=== PATIENT | female | born 1995 ===

== ENCOUNTER → 2020-08-06 13:14 | Outpatient (BNVA) | payer OTHER, SELFPAY | PROVIDERS: Visit Provider Advanced Practice Midwife | DX: Z32.00 Encounter for pregnancy test, result unknown (principal) | CPT/HCPCS: 81025; 99211 ==

== ENCOUNTER → 2020-09-03 14:11 | Outpatient (BNVA) | payer OTHER, SELFPAY | PROVIDERS: Visit Provider Advanced Practice Midwife | DX: Z76.89 Persons encountering health services in other specified circumstances (principal) ==

== ENCOUNTER 2020-09-14 11:33 | Outpatient (REF) | payer OTHER, SELFPAY ==
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
[2020-09-14 13:23] LABS: MANUAL DIFF FLAG NO
[2020-09-14 13:35] LABS: Basophils Absolute Auto 0.1 X10*3/uL (0.0-0.2); Basophils Percent Auto 0.3 % (0-2); Eosinophils Absolute Auto 0.1 X10*3/uL (0.0-0.4); Eosinophils Percent Auto 0.9 % (0-4); Hematocrit 38.3 % (37-47); Hemoglobin 12.6 g/dl (12.0-16.0); Imm Gran Abs Auto 0.15 X10*3/uL (0.00-0.03); Lymphocytes Absolute Auto 2.7 X10*3/uL (1.2-4.9); Lymphocytes Percent Auto 18.3 % (20-40); Mean Corpuscular HGB Conc 32.9 g/dl (31.0-35.0); Mean Corpuscular Hemoglobin 29.9 pg (27.0-33.0); Mean Platelet Volume 9.2 fL (9.4-12.3); Monocytes Absolute Auto 0.8 X10*3/uL (0.1-1.2); Monocytes Percent Auto 5.2 % (2-11); Neutrophils Percent Auto 74.3 % (45-73); Platelet Count 472 X10*3/uL (160-400); Red Blood Count 4.21 X10*6/uL (4.20-5.50); Red Cell Distribution Width 12.1 % (11.0-16.0); White Blood Count 14.9 X10*3/uL (4.8-10.8)
[2020-09-14 14:06] LABS: Amphetamine Screen Urine Not Detected (Not Detect); Barbiturates, Urine Not Detected (Not Detect); Benzodiazepines Screen Urine Not Detected (Not Detect); Cannabinoid Screen Urine POSITIVE (Not Detect); Cocaine Screen Urine Not Detected (Not Detect); Opiate Screen Urine Not Detected (Not Detect); Phencyclidine Screen Urine Not Detected (Not Detect)
[2020-09-14 14:27] LABS: Syphilis Screen Nonreactive (Nonreactive)
[2020-09-15 09:22] LABS: Rubella IgG Antibody 1.68 index
[2020-09-17 08:26] LABS: HBsAGNum1 0.27 S/CO (0.00-0.99); Hepatitis B Surface Antigen Negative (Negative); ~HepC Num1 0.08 S/CO (0.00-0.79); ~Hepatitis C Antibody Nonreactive (Nonreactive)
[2020-09-17 08:42] LABS: HIV AB/AG Nonreactive (Nonreactive); HIV Num 1 0.15 S/CO (0.00-0.99)
== END 2020-09-14 11:34 | disposition home or self-care (01) ==
LOC: HO.US 11:33
PROVIDERS: Visit Provider Advanced Practice Midwife
DX: Z34.90 Encounter for supervision of normal pregnancy, unspecified, unspecified trimester (principal)
CPT/HCPCS: 36415; 76813; 80307; 85025; 86762; 86780; 86787; 86803; 86850; 86900; 86901; 87086; 87340; 87389

== ENCOUNTER 2020-10-01 09:44 | Outpatient (REF) | payer OTHER, SELFPAY ==
[2020-10-01 16:13] LABS: CT PCR DETECTED (Not Detect.); NG PCR NOT DETECTED (Not Detect.)
[2020-10-02 13:21] LABS: BV Int Neg Control Negative (Negative); BV Int Pos Control Positive (Positive)
== END 2020-10-01 09:45 | disposition home or self-care (01) ==
LOC: HO.LAB 09:44
PROVIDERS: Visit Provider Advanced Practice Midwife
DX: Z34.90 Encounter for supervision of normal pregnancy, unspecified, unspecified trimester (principal); Z87.59 Personal history of other complications of pregnancy, childbirth and the puerperium
CPT/HCPCS: 87255; 87480; 87491; 87510; 87591; 87660; 90686

== ENCOUNTER 2020-10-19 12:04 | Outpatient (REF) | payer OTHER, SELFPAY ==
--- NOTE | 2020-10-19 12:10 | US_ITS ---
EXAMINATION: US OBSTETRICAL CLINICAL INFORMATION: 25-year-old at 19.1 weeks of gestation Suspected anomaly COMPARISON: 09/14/2020 TECHNIQUE: Real-time transabdominal ultrasound was performed using C1-5 megahertz transducer. FINDINGS: A single, active, fetus is seen in vertex presentation. The placenta is anterior without previa, and the amniotic fluid volume is wnl. MEASUREMENTS: 1. Biparietal Diameter: 4.7 cm; 20.2 wks 2. Occipital Frontal Diameter: 6.1 cm 3. Head Circumference: 17.3 cm; 19.6 wks 4. Abdominal Circumference: 16.4 cm; 21.4 wks 5. Femur Length: 3.1 cm; 19.6 wks 6. Humerus Length: 3.2 cm; 20.6 wks 7. Tibia Length: 2.78 cm; 20.1 wks 8. Ulna Length: 2.9 cm; 20.5 wks 9. Lateral ventricle: 0.53 cm 10. Cerebellum: 2.1 cm; 21.1 wks 11. Cisterna Magna: 0.4 cm 12. Nuchal Fold: 4.7 mm 13. Heart Rate: 147 beats per minute Rt ovary: Unable to visualize Lt ovary: normal Cervical length 3.1 cm on T/A. GESTATIONAL AGE: 1. Established GA: 19.1 wks 2. GA from [facility]: 20.3 wks ESTIMATED DATE OF DELIVERY: 1. Established KELLI: 03/14/2021 2. KELLI from [facility]: 03/05/2021 ANATOMY: The visualized anatomy includes but not limited to: 1. Cranium: Normal 2. Intracranial anatomy: Bilateral choroid plexus cysts were noted. Otherwise rest of the intracranial anatomy are within normal limits. These include the cavum septum pellucid the, lateral, third and fourth ventricles, cerebellum, posterior fossa and cerebellar vermix. 3. face: orbits, lip/palate, profile, nasal bone 4. Heart: four-chamber view of the heart, ventricular septum, foramen ovale, pulmonary vein, left and right outflow tracts, three-vessel view, 3 vessel trachea view, aortic and ductal arches, situs.. 5. Diaphragm: Normal 6. Abdominal wall: Normal 7. Cord Insertion: Normal 8. Spine: Cervical, thoracic, lumbar, sacral. 9. Stomach: Normal size and shape 10. Right Kidney: Normal 11. Left Kidney: Normal 12. 3 vessel cord: Normal 13. Upper extremity: Open hands, fifth digit. 14. Lower extremity: Tibia, fibula, bilateral feet. 15. Bladder: Normal 16. Genitalia: Male, patient aware US/US OB /maternal detail IMPRESSION: 1. Single, living, intrauterine with appropriate biometry. 2. Isolated bilateral choroid plexus cysts. DISCUSSION: I reviewed today's ultrasound findings and weak association with trisomy 18 and choroid plexus cysts. I informed her that the likelihood ratio is 2. Normally there are other sonographic stigmata for trisomy 18. In addition, the N IPT has a higher sensitivity for trisomy 18 compared to ultrasound detection. We discussed the limitations of ultrasound in diagnosing aneuploidy and other congenital abnormalities. I reviewed the differences between screening test and diagnostic test. Amniocentesis was discussed and declined. She was informed that the baseline incidence of congenital abnormalities is approximately 3-5%. Not all these conditions are diagnosable in utero. RECOMMENDATIONS: 1. No further ultrasound has been scheduled today. Thank you for allowing me to participate in her care. Visiting time 40 minutes. Majority of this visit was spent reviewing and discussing her care.
== END 2020-10-19 12:05 | disposition home or self-care (01) ==
LOC: HO.US 12:04
PROVIDERS: Visit Provider Advanced Practice Midwife
DX: O35.9XX0 Maternal care for (suspected) fetal abnormality and damage, unspecified, not applicable or unspecified (principal); O34.82 Maternal care for other abnormalities of pelvic organs, second trimester; N83.292 Other ovarian cyst, left side; N83.291 Other ovarian cyst, right side; Z3A.19 19 weeks gestation of pregnancy
CPT/HCPCS: 76811

== ENCOUNTER 2020-11-27 14:27 | Outpatient (REF) | payer OTHER, SELFPAY ==
[2020-11-28 19:02] LABS: C. trachomatis RNA TMA NOT DETECTED (NOT DETECTED); N. gonorrhoeae RNA TMA NOT DETECTED (NOT DETECTED)
== END 2020-11-27 14:28 | disposition home or self-care (01) ==
LOC: HO.LAB 14:27
PROVIDERS: Visit Provider Advanced Practice Midwife
DX: O26.90 Pregnancy related conditions, unspecified, unspecified trimester (principal); N90.89 Other specified noninflammatory disorders of vulva and perineum
CPT/HCPCS: 36415; 81003; 87491; 87591; 99212

== ENCOUNTER 2021-02-14 09:23 | Outpatient (REF) | payer OTHER, SELFPAY ==
[2021-02-14 11:51] LABS: Hematocrit 36.1 % (37-47); Hemoglobin 11.6 g/dl (12.0-16.0); Mean Corpuscular HGB Conc 32.1 g/dl (31.0-35.0); Mean Corpuscular Volume 87.2 fL (80-98); Platelet Count 441 X10*3/uL (160-400); Red Blood Count 4.14 X10*6/uL (4.20-5.50); Red Cell Distribution Width 14.5 % (11.0-16.0); White Blood Count 13.7 X10*3/uL (4.8-10.8)
[2021-02-14 15:22] LABS: CT PCR NOT DETECTED (Not Detect.); NG PCR NOT DETECTED (Not Detect.)
[2021-02-15 07:44] LABS: HIV AB/AG Nonreactive (Nonreactive); HIV Num 1 0.13 S/CO (0.00-0.99)
[2021-02-15 08:54] LABS: Syphilis Screen Nonreactive (Nonreactive)
[2021-02-15 11:03] LABS: BV Int Neg Control Negative (Negative); BV Int Pos Control Positive (Positive)
[2021-02-20 18:32] LABS: HSV 1 IgM IFA Negative (Negative); HSV 2 IgM IFA Negative (Negative)
== END 2021-02-14 09:24 | disposition home or self-care (01) ==
LOC: HO.LAB 09:23
PROVIDERS: Advanced Practice Midwife; Visit Provider Advanced Practice Midwife
DX: Z34.92 Encounter for supervision of normal pregnancy, unspecified, second trimester (principal); Z20.2 Contact with and (suspected) exposure to infections with a predominantly sexual mode of transmission; N90.89 Other specified noninflammatory disorders of vulva and perineum; Z86.19 Personal history of other infectious and parasitic diseases
CPT/HCPCS: 36415; 85027; 86695; 86696; 86780; 87081; 87147; 87186; 87389; 87480; 87491; 87510; 87591; 87660; 90471; 90715; 99212

== ENCOUNTER 2021-07-10 12:32 | Emergency (ER) | payer OTHER, SELFPAY ==
[2021-07-10 12:47] VITALS: BP 87/59; PULSE 88; RESP 16; TEMP 36.9; O2SAT 99; BMI 20.9
--- NOTE | 2021-07-10 13:15 | ED.SKABFB ---
HPI - Skin/Abscess/Foreign Bdy General Chief complaint: Skin/Abscess/Foreign Body Stated complaint: RASH Time Seen by Provider: 07/10/21 13:02 Source: patient and family Mode of arrival: ambulatory Limitations: no limitations History of Present Illness MD complaint: rash Onset (ago): day(s) (For the past few days worse today) Location: generalized Severity: moderate Quality: constant and pruritic Pain Consistency: constant Relieving factors: none Exacerbating factors: none Context: other (Currently at a homeless senior living believes they may have scabies) Associated symptoms: denies other symptoms Treatments prior to arrival: none Related Data Home Medications Medication Instructions Recorded Confirmed prenat.vits,jhon,[id number] 1 tab PO DAILY 02/14/21 Previous Rx's Medication Instructions Recorded valacyclovir 1 gram tablet 1,000 mg PO DAILY #60 tab 02/14/21 permethrin 5 % topical cream 1 appl TOPICAL Q14D #60 g 07/10/21 Allergies Allergy/AdvReac Type Severity Reaction Status Date / Time amoxicillin [AMOXICILLIN] Allergy Severe ANAPHYLAXIS Verified 02/14/21 09:43 Penicillins [PENICILLINS] Allergy Severe ANAPHYLAXIS Verified 02/14/21 09:43 Review of Systems Review of Systems: Constitutional : No Fever, No Chills , no body aches, no recent illness Head/Face: No facial swelling, No facial redness ENT/Mouth : No oral/throat swelling, No Hoarseness, No Swallowing Difficulty Eyes: No Eye Pain, No Swelling, No Redness Cardiovascular : No Chest Pain, No SOB, No palpitations Respiratory : No Cough, No Sputum, No Wheezing, No Smoke Exposure, No Dyspnea Gastrointestinal : No Nausea, No Vomiting, No Diarrhea, No abdominal Pain Genitourinary : No Dysuria, No Urinary Frequency, No Hematuria Musculoskeletal : No joint pain, No Myalgias, No Joint Swelling Skin : No Skin Lesions, positive rash Neuro : No Weakness, No Numbness, No Headache, No dizziness, No tingling Psych : No Anxiety/Panic, No Depression Heme/Lymph: No Bruising, No Lymphadenopathy Endocrine : No Polyuria, No Polydipsia Denies changes in lotions or detergents. Denies new medications or any changes in medications. Denies drainage from rash. Denies any recent sick contacts or recent travel. Yes all other systems are reviewed and are negative PMFSH Past Medical History Attestation statement: The following information was validated with the patient. Medical History History of stillbirth Surgical History Hx of foot surgery Family History Family History Paternal Grandmother Hx of diabetes mellitus Mother No problems noted. Father No problems noted. Maternal Grandmother No problems noted. Maternal Grandfather No problems noted. Paternal Grandfather No problems noted. Social History Social History Household Members: Family Housing: Apartment Alcohol intake: never Substance Use Type: Marijuana Advance Directives: No Advance Directives Information Provided: No service: No Current occupational status: student Current occupational exposures/hazards: No Physical Exam Vital Signs: Vital Signs: Last Vital Signs Temp 98.4 F 07/10/21 12:47 Pulse 88 07/10/21 12:47 Resp 16 07/10/21 12:47 BP 87/59 L 07/10/21 12:47 Pulse Ox 99 07/10/21 12:47 Body Mass Index 20.9 vital signs have been reviewed as normal and appeared to be correct. Blood pressure normal. Heart rate normal. Respiration rate normal. Temperature normal. Oxygen saturation normal. Appearance: Alert. Oriented X3. No acute distress. Head: Normal external exam. Normocephalic. Atraumatic. Eyes: PERRLA. EOMI. Conjunctiva and sclera normal. Eyelids normal. ENT: Pharynx normal. Uvula midline. Moist mucous membranes. Neck: Normal inspection. Neck supple. FROM. No adenopathy. No meningeal signs. CVS: Normal heart rate and rhythm. Respiratory: No respiratory distress. Painless inspiration. Back: Full range of motion noted. No rashes/lesion/induration/fluctuance or signs of infection noted. Skin: Skin warm and dry. Normal skin color. Normal skin turgor. With scattered macular papular pruritic lesions with burrows c/w scabies. No additional rashes/lesions/lacerations noted. Extremities: Extremities exhibit normal range of motion. Extremities nontender. Neuro: Oriented X 3. No motor deficit. No sensory deficit. Reflexes normal. Normal steady gait. No focal neuro deficits noted. Vascular: + radial pulses/+ 2 distal pedal pulses/+2 dorsalis pedis b/l. Normal cap refill. No cyanosis noted to upper extremity nails and lower extremity toes nails. Course Course Course Narrative: 26-year-old female presenting to the ED with her family 2 kids complaints of rash that started a few days ago that is pruritic in nature they are currently at senior living and they believe they may have scabies. On exam the entire family has pure attic macular papular lesions with burrows consistent with scabies. No signs of infection. Will DC home with treatment for scabies and instructions to return if any new or worsening symptoms to follow up with primary care provider. Patient and family at bedside understands agrees this plan. MDM - Skin/Abscess/Foreign Bdy Medical Records Attestation: I reviewed the patient's medical records. Lab Data Attestation: I reviewed the patient's lab results. Discharge Plan Discharge Clinical Impression: Scabies Patient Disposition: Home, Self-Care Instructions: Scabies (ED) Prescriptions: New permethrin 5 % cream 1 appl topical Q14D Qty: 60 RF: 2 No Action prenat.vits,jhon,[id number] Tablet 1 tab PO DAILY RF: 0 valacyclovir 1 gram tablet 1,000 mg PO DAILY Qty: 60 RF: 0 Referrals: ED Physician,Generic [Emergency Provider] - 2 days (your pcp) Print Language: Serbian
== END 2021-07-10 14:05 | disposition home or self-care (01) ==
PROVIDERS: Emergency Provider Emergency Medicine
DX: B86 Scabies (principal); R21 Rash and other nonspecific skin eruption; F12.90 Cannabis use, unspecified, uncomplicated; Z79.899 Other long term (current) drug therapy
CPT/HCPCS: 99283

== ENCOUNTER 2021-10-29 07:47 | Emergency (ER) | payer OTHER, SELFPAY ==
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
[2021-10-29 07:52] VITALS: PULSE 98; RESP 16; TEMP 36.1; O2SAT 95; BMI 20.9
--- NOTE | 2021-10-29 09:16 | ECG_ITS ---
Test Reason : syncope Blood Pressure : / mmHG Vent. Rate : 055 BPM Atrial Rate : 055 BPM P-R Int : 166 ms QRS Dur : 078 ms QT Int : 460 ms P-R-T Axes : 052 060 041 degrees QTc Int : 440 ms Sinus bradycardia with sinus arrhythmia Possible Left atrial enlargement Juvenile T waves Borderline ECG No previous ECGs available Referred By: Alexandra Valera Electronically Signed By:Cy Cuellar
[2021-10-29 10:00] VITALS: BP 96/54; PULSE 65; RESP 14; TEMP 36.7; O2SAT 100
[2021-10-29] MEDS: oxyCODONE HCl Immed Release 5 MG TABLET PO (10:08)
[2021-10-29] MEDS: Ondansetron ODT 4 MG TAB.RAPDIS TRANSLINGU (10:08)
--- NOTE | 2021-10-29 10:28 | ED.BACK ---
HPI - Back Pain/Injury General Chief Complaint: Back Pain/Injury Stated Complaint: Back Pain S/P Fall Time Seen by Provider: 10/29/21 09:04 Source: patient Mode of arrival: ambulatory Limitations: no limitations History of Present Illness HPI Narrative: 26-year-old female who slipped on fell on her tailbone this morning presents for evaluation. This morning she slipped on ice and fell on her bottom down 4 steps landing on a concrete step at the bottom.. She did not hit her head, no loss of consciousness, she remembers the whole thing. She has right hip pain and tailbone pain. She can walk. No history of back problems. Patient states her pain as a 7/10. Last menstrual period was 1 month ago, no control and is sexually ctive MD elicited complaint: back injury Pertinent past history: recent trauma Onset (ago): hour(s) (1) Timing: constant Severity: severe Pain scale (0-10): 7 Similar Symptoms Previously: No Quality: sharp Location: sacrum Exacerbating factors: movement Relieving factors: immobilization Context: fall Associated symptoms: denies other symptoms Treatments prior to arrival: cold therapy Work related injury: No Related Data Home Medications Medication Instructions Recorded Confirmed prenat.vits,jhon,[id number] 1 tab PO DAILY 02/14/21 Previous Rx's Medication Instructions Recorded valacyclovir 1 gram tablet 1,000 mg PO DAILY #60 tab 02/14/21 permethrin 5 % topical cream 1 appl TOPICAL Q14D #60 g 07/10/21 vits no.124-ferrous fum 1 tab PO DAILY #30 tab 10/29/21 27 mg iron-folic acid 800 mcg tablet ( Vitamin) Allergies Allergy/AdvReac Type Severity Reaction Status Date / Time amoxicillin [AMOXICILLIN] Allergy Severe ANAPHYLAXIS Verified 10/29/21 08:01 Penicillins [PENICILLINS] Allergy Severe ANAPHYLAXIS Verified 10/29/21 08:01 Review of Systems Constitutional: Constitutional: Denies body ache(s), Denies chills, Denies fatigue, Denies fever(s), Denies headache(s), Denies malaise and Denies weakness Eyes: Eyes: Denies diplopia ENT: Denies vertigo, Denies dizziness, Denies otalgia, Denies headache(s), Denies mouth pain, Denies neck pain, Denies post nasal drip, Denies sinus pain, Denies sinus pressure, Denies sore throat and Denies throat swelling Cardiovascular: Cardiovascular: Denies chest pain, Denies syncope, Denies leg edema, Denies lightheadedness, Denies Loss of Consciousness, Denies palpitations and Denies dyspnea Respiratory: Respiratory: Denies chest congestion, Denies cough and Denies dyspnea Gastrointestinal: Gastrointestinal: Denies abdominal pain, Denies hematochezia, Denies constipation, Denies diarrhea and Denies vomiting Musculoskeletal: Musculoskeletal: Denies abnormal gait, Reports back pain, Denies muscle weakness, Denies neck pain, Denies numbness and Denies tingling Neurologic: Denies abnormal gait, Denies confusion, Denies vertigo, Denies dizziness, Denies syncope, Denies headache(s), Denies focal weakness, Denies numbness, Denies Sensory deficit (Neuro), Denies tingling and Denies weakness Psychiatric: Psychiatric: Denies anxiety, Denies confusion and Denies depression Endocrine: Endocrine: Denies fatigue and Denies palpitations Allergic/Immunologic: Allergic/Immunologic: Denies throat swelling PMFSH Past Medical History Medical History History of stillbirth Surgical History Hx of foot surgery Family History Family History Paternal Grandmother Hx of diabetes mellitus Mother No problems noted. Father No problems noted. Maternal Grandmother No problems noted. Maternal Grandfather No problems noted. Paternal Grandfather No problems noted. Social History Social History Household Members: Family Housing: Apartment Alcohol intake: never Patient Tobacco Use Status: Current everyday Tobacco user Use of substances other than those prescribed or required for medical reasons: No Substance Use Type: Marijuana Advance Directives: No Advance Directives Information Provided: Yes service: No Current occupational status: student Current occupational exposures/hazards: No Physical Exam Vital Signs: Vital Signs: Last Vital Signs Temp 98.0 F 10/29/21 10:00 Pulse 68 10/29/21 11:28 Resp 14 10/29/21 10:00 BP 96/54 L 10/29/21 11:28 Pulse Ox 100 10/29/21 10:00 BMI result Body Mass Index 20.9 Const: General: No confusion Nutritional Appearance: well nourished Orientation/consciousness: No confusion Limitations: no limitations HENMT: Head: Yes normal to inspection, Yes normocephalic and Yes atraumatic Ears: hearing grossly normal bilaterally, external ears normal, TM's normal bilaterally and EAC's normal General nose exam: Normal external nose present Face and sinus: Yes normal facial exam and Yes sinuses nontender Mouth: Normal oral and palatal mucosa present Throat: Yes posterior oropharynx normal Eyes: Conjunctivae: conjunctivae normal Pupils: Equal, round and reactive pupils present EOM: EOMs intact bilaterally Neck: Neck: Yes full ROM, Yes no lymphadenopathy and Yes supple Resp: Effort & Inspection: normal respiratory effort and able to speak in complete sentences Auscultation: clear to auscultation bilaterally, no crackles, no rales, no rhonchi and no wheezes Cardio: Rate: regular rate Rhythm: regular rhythm Heart sounds: S1 normal heart sound present and S2 normal heart sound present GI: Inspection: Yes normal to inspection Palpation (GI): Soft to palpation, nontender, no guarding and not rigid Percussion: Yes normal to percussion Auscultation: normal bowel sounds Back/Spine/Pelvis: Cervical Spine: normal cervical lordosis, cervical ROM normal, No Cervical spine tenderness and No step off deformity Thoracic/Lumbar Spine: thoraco-lumbar ROM normal, No thoracic spinal tenderness and No lumbar spinal tenderness Pelvis: no pain with anterior-posterior compression and no pain with lateral compression Sacrum: no ecchymosis, no erythema, no swelling and tenderness Coccyx: swelling and Coccyx tenderness present Skin: General skin exam: no rashes or lesions noted Neuro: General: No confusion Cranial nerves: Yes Equal, round and reactive pupils present Sensory Exam: No Sensory deficit (Neuro) Extrem: General: Yes normal to inspection and Yes full ROM Psych: Appearance: grossly normal Affect: normal affect Attitude: cooperative Thought process: Normal thought process present Course Course Course Narrative: 26-year-old female who slipped on steps today and complains of tailbone pain and right hip pain. On exam, patient is tender and her sacrum and coccyx. When I palpated, ablation had a brief 1-2 second episode of syncope. Patient is neurologically intact in her symptoms resolved. Will get imaging, EKG, pain medication Reevaluation(s) Reevaluation #1: Patient's x-rays are negative for fracture. Patient has intact lower extremities sensation home meds deep tendon reflexes, motor strength, and pulses. She is able to walk, is able to get up on her toes and up on her heels. However, when she stands up, she feels like she might faint. She has not yet given a urine. Will give fluids, do orthostatics, do hcg Reevaluation #2: negative orthostatics Patient found to have a HCG level of 15,367 Patient states that she will terminate the , she does not want to be . Did refer her to OBGYN, did prescribe Vitamins in case patient changes her mind Counseled to take Tylenol, and if she has worsening tailbone pain, leg weakness, numbness or tingling in her groin, or any other new or concerning symptoms, she should return to ER to be seen Discussed plan with Dr Colon, who agreeds with plan MDM - Back Pain/Injury Lab Data Labs: Lab Results 10/29/21 Range/Units 11:39 Beta HCG, Quant 39047 mIU/mL Discharge Plan Discharge Clinical Impression: Fall Qualifiers: Encounter type: initial encounter Qualified Code(s): W19.XXXA - Unspecified fall, initial encounter Qualifiers: Weeks of gestation: less than 8 weeks Qualified Code(s): Z3A.01 - Less than 8 weeks gestation of Patient Disposition: Home, Self-Care Instructions: (ED), Fall Prevention (ED) Additional Instructions: I have referred you to our OBGYN, [facility] I sent vitamins into her pharmacy. Please take Tylenol for your back pain, if you have worsening pain, numbness or tingling in your legs, leg weakness, fevers, pain please return to emergency room Prescriptions: New Vitamin 27 mg iron- 800 mcg tablet 1 tab PO DAILY Qty: 30 RF: 0 No Action permethrin 5 % cream 1 appl topical Q14D Qty: 60 RF: 2 prenat.vits,jhon,[id number] Tablet 1 tab PO DAILY RF: 0 valacyclovir 1 gram tablet 1,000 mg PO DAILY Qty: 60 RF: 0 Referrals: Chris Wolfe MD [Physician] - 2 days Stand Alone Forms: Work/School Release
[2021-10-29 11:20] VITALS: BP 95/45; PULSE 56
[2021-10-29 11:27] VITALS: BP 93/53; PULSE 73
[2021-10-29 11:28] VITALS: BP 96/54; PULSE 68
[2021-10-29] MEDS: 0.9 % Sodium Chloride 1,000 ML 999 ML IV (11:39)
[2021-10-29 12:44] LABS: HCG Quantitative 15367 mIU/mL
[2021-10-29 13:14] VITALS: BP 98/52; PULSE 65; RESP 16; O2SAT 100
== END 2021-10-29 13:18 | disposition home or self-care (01) ==
PROVIDERS: Physician Assistant; Emergency Provider Emergency Medicine
DX: Z04.3 Encounter for examination and observation following other accident (principal); Z33.1 Pregnant state, incidental; Z91.81 History of falling
CPT/HCPCS: 36415; 72220; 73502; 84702; 93005; 96360; 99284

== ENCOUNTER 2022-05-15 10:04 | Outpatient (REF) | payer OTHER, SELFPAY ==
[2022-05-15 10:25] LABS: MANUAL DIFF FLAG NO
[2022-05-15 11:00] LABS: Basophils Absolute Auto 0.1 X10*3/uL (0.0-0.2); Basophils Percent Auto 0.7 % (0-2); Eosinophils Absolute Auto 0.1 X10*3/uL (0.0-0.4); Eosinophils Percent Auto 1.1 % (0-4); Hematocrit 41.3 % (37.0-47.0); Hemoglobin 13.7 g/dl (12.0-16.0); Imm Gran Abs Auto 0.03 X10*3/uL (0.00-0.03); Imm Gran Pct Auto 0.3 % (0.0-0.4); Lymphocytes Absolute Auto 2.5 X10*3/uL (1.2-4.9); Lymphocytes Percent Auto 28.8 % (20-40); Mean Corpuscular HGB Conc 33.2 g/dl (31.0-35.0); Mean Corpuscular Hemoglobin 29.5 pg (27.0-33.0); Mean Corpuscular Volume 88.8 fL (80.0-98.0); Mean Platelet Volume 9.7 fL (9.4-12.3); Monocytes Absolute Auto 0.4 X10*3/uL (0.1-1.2); Monocytes Percent Auto 4.6 % (2-11); Neutrophils Absolute Auto 5.6 x10*3/uL (2.0-8.3); Neutrophils Percent Auto 64.5 % (45-73); Platelet Count 466 X10*3/uL (160-400); Red Blood Count 4.65 X10*6/uL (4.20-5.50); Red Cell Distribution Width 12.9 % (11.0-16.0); White Blood Count 8.7 X10*3/uL (4.8-10.8)
[2022-05-15 11:08] LABS: Partial Thromboplastin Time 32.4 SEC (24.1-38.0)
[2022-05-15 11:34] LABS: Alanine Aminotransferase 14 U/L (0-31); Albumin Level 4.3 g/dL (3.5-5.0); Alkaline Phosphatase 64 U/L (39-117); Anion Gap 11 (12-20); Aspartate Amino Transferase 16 U/L (5-31); Bilirubin Total 0.4 mg/dL (0.0-1.0); Blood Urea Nitrogen 9 mg/dL (9-16); Calcium 9.1 mg/dL (8.4-10.2); Carbon Dioxide 23 mmol/L (22-29); Chloride 109 mmol/L (96-108); Estimated Glomerular Filt Rate > 60; Glucose Random 73 mg/dL (60-115); Potassium 4.5 mmol/L (3.3-5.1); Sodium 138 mmol/L (135-145); Total Protein 7.2 g/dL (6.5-8.0)
== END 2022-05-15 10:05 | disposition home or self-care (01) ==
LOC: HO.LAB 10:04
PROVIDERS: PCP Internal Medicine; Visit Provider Internal Medicine
DX: Z01.818 Encounter for other preprocedural examination (principal)
CPT/HCPCS: 36415; 80053; 85025; 85610; 85730

== ENCOUNTER 2024-03-11 13:22 | Emergency (ER) | payer MEDICAID, SELFPAY ==
--- NOTE | 2024-03-11 13:29 | ED_ITS ---
<Statement entered by Indra Haskins MD - 04/11/24 13:25> Duplicate chart , please see my other note for full detail for this encounter. HPI - General Adult General Chief complaint: Headache Stated complaint: migraine Time Seen by Provider: 03/11/24 16:15 Related Data Home Medications ?Medication ?Instructions ?Recorded ?Confirmed prenat.vits,jhon,[id number]-iorcs 1 tab PO DAILY 02/14/21 Previous Rx's ?Medication ?Instructions ?Recorded valacyclovir 1 gram tablet 1,000 mg PO DAILY #60 tabs 02/14/21 permethrin 5 % topical cream 1 appl topical Q14D scabies 2 07/10/21 doses #60 grams vits no.124-ferrous fum 1 tab PO DAILY #30 tabs 10/29/21 27 mg iron-folic acid 800 mcg tablet ( Vitamin) Allergies Allergy/AdvReac Type Severity Reaction Status Date / Time amoxicillin [AMOXICILLIN] Allergy Severe ANAPHYLAXIS Verified 03/11/24 13:32 Penicillins [PENICILLINS] Allergy Severe ANAPHYLAXIS Verified 03/11/24 13:32 PMFSH Past Medical History Medical History History of stillbirth Surgical History Hx of foot surgery Family History Family History Paternal Grandmother Hx of diabetes mellitus Mother No problems noted. Father No problems noted. Maternal Grandmother No problems noted. Maternal Grandfather No problems noted. Paternal Grandfather No problems noted. Social History Social History Household Members: Family Housing: Apartment Alcohol intake: never Patient Tobacco Use Status: Current everyday Tobacco user Smoked in Last 30 Days: No Use of substances other than those prescribed or required for medical reasons: No Substance Use Type: Marijuana Advance Directives: No Advance Directives Information Provided: Yes service: No Current occupational status: student Current occupational exposures/hazards: No Physical Exam ED Vital Signs: BMI result Body Mass Index 20.1 Course Course Course Narrative: This is a rapid medical exam performed by Autumn Mcqueen NP: Additional HPI, ROS, PE not included below will be deferred to primary provider. Patient is a 29-year-old female KELLI [birth year] presenting to the ED with complaint of severe headache and sinus pain for the past few weeks. Initially thought it was a sinus infection. Reports photophobia. Denies history of migraines. Reports nausea but states has had this with her . Plan: viral swabs Medications Administered Discontinued Medications Generic Name Dose Route Start Last Admin Trade Name Freq PRN Reason Stop Dose Admin Acetaminophen 975 mg 03/11/24 16:30 03/11/24 17:31 Acetaminophen 325 Mg Tablet PO 03/11/24 16:31 975 mg ONCE ONE Administration Diphenhydramine HCl 25 mg 03/11/24 16:30 03/11/24 17:30 Diphenhydramine Hcl 50 Mg/Ml Vial IVPUSH 03/11/24 16:31 25 mg ONCE ONE Administration Metoclopramide HCl 10 mg 03/11/24 16:30 03/11/24 17:30 Metoclopramide Hcl 10 Mg/2 Ml Vial IVPUSH 03/11/24 16:31 10 mg ONCE ONE Administration Potassium Chloride 20 meq 03/11/24 18:04 03/11/24 18:10 Potassium Chloride Er 20 Meq Tab.Er.Prt PO 03/11/24 18:05 20 meq ONCE ONE Administration Medical Decision Making Lab Data 03/11/24 17:26 03/11/24 17:26 Labs: Lab Results 03/11/24 03/11/24 Range/Units 13:44 17:26 WBC 17.1 H (4.8-10.8) X10*3/uL RBC 4.31 (4.20-5.50) X10*6/uL Hgb 13.2 (12.0-16.0) g/dl Hct 37.9 (37.0-47.0) % MCV 87.9 (80.0-98.0) fL MCH 30.6 (27.0-33.0) pg MCHC 34.8 (31.0-35.0) g/dl RDW 11.9 (11.0-16.0) % Plt Count 506 H (160-400) X10*3/uL MPV 8.7 L (9.4-12.3) fL Immature Gran % (Auto) 0.5 H (0.0-0.4) % Neut % (Auto) 76.6 H (45-73) % Lymph % (Auto) 17.1 L (20-40) % [place] % (Auto) 4.8 (2-11) % Eos % (Auto) 0.6 (0-4) % Baso % (Auto) 0.4 (0-2) % Lymph # (Auto) 2.9 (1.2-4.9) X10*3/uL [place] # (Auto) 0.8 (0.1-1.2) X10*3/uL Eos # (Auto) 0.1 (0.0-0.4) X10*3/uL Baso # (Auto) 0.1 (0.0-0.2) X10*3/uL Abs Immat Gran (auto) 0.09 H (0.00-0.03) X10*3/uL Absolute Neuts (auto) 13.1 H (2.0-8.3) x10*3/uL Absolute Nucleated RBC 0.000 (0.0-0.012) X10*3/uL Nucleated RBC % (auto) 0.0 (0.0-0.2) /100WBC Sodium 138 (135-145) mmol/L Potassium 3.1 L (3.3-5.1) mmol/L Chloride 105 (96-108) mmol/L Carbon Dioxide 22 (22-29) mmol/L Anion Gap 14 (12-20) BUN 9 (9-16) mg/dL Creatinine 0.61 (0.5-1.4) mg/dL Estim Creat Clear Calc 94.4 Estimated GFR > 60 Random Glucose 124 H (60-115) mg/dL Calcium 9.0 (8.4-10.2) mg/dL Total Bilirubin 0.3 (0.0-1.0) mg/dL AST 15 (5-31) U/L ALT 11 (0-31) U/L Alkaline Phosphatase 57 (39-117) U/L Total Protein 7.1 (6.5-8.0) g/dL Albumin 3.7 (3.5-5.0) g/dL Influenza Type A (PCR) NEGATIVE (Negative) Influenza Type B (PCR) NEGATIVE (Negative) RSV RNA Qual (PCR) NEGATIVE (Negative) SARS-CoV-2 RNA (RT-PCR) NEGATIVE (Negative) Discharge Plan Discharge Clinical Impression: , Headache, Hypokalemia Patient Disposition: Home, Self-Care Additional Instructions: You were seen in the emergency room for headache. Symptoms are likely related to the recent diagnosis of . At home take Tylenol 1000 mg every 6 hours, continuing her vitamin. Presented to the emergency room if your symptoms represent and are not controlled with Tylenol. Follow-up with your OBGYN as scheduled. Prescriptions: No Action permethrin 5 % cream 1 appl topical Q14D Qty: 60 2RF Rx Instructions: apply second treatment 14 days after first treatment if live lice remain Vitamin 27 mg iron- 800 mcg tablet 1 tab PO DAILY Qty: 30 0RF prenat.vits,jhon,[id number]-pwnkw Tablet 1 tab PO DAILY valacyclovir 1 gram tablet 1,000 mg PO DAILY Qty: 60 0RF Interventions: ED Discharge Assessment Last Done: 03/11/24 18:43 Discharge Date/Time: 03/11/24 18:44 Print Language: Macedonian
[2024-03-11 13:30] VITALS: BP 121/71; PULSE 82; RESP 18; TEMP 36.5; O2SAT 99; BMI 20.1
[2024-03-11 14:27] LABS: Influenza A PCR NEGATIVE (Negative); Influenza B PCR NEGATIVE (Negative); Resp Syncy Virus RNA Qual PCR NEGATIVE (Negative); SARS COV2 PCR INHOUSE NEGATIVE (Negative)
[2024-03-11 16:00] VITALS: BP 125/70; PULSE 83; RESP 20; TEMP 36.9; O2SAT 99
--- NOTE | 2024-03-11 16:31 | ED.GENADULT ---
HPI - General Adult General Chief complaint: Headache Stated complaint: migraine Time Seen by Provider: 03/11/24 16:15 Source: patient Limitations: no limitations History of Present Illness HPI narrative: 29 years old , at 10 weeks based on LMP, presents emergency room for headache. The patient is being having intermittent headache for the past few weeks associated with nausea and vomiting. Patient reports the pain as pressure at the level of her forehead and maxillary sinus. She denies runny nose, cough, chills or fever. Patient reports that the pain is 10/10 however does not appear in severe distress, reports photophobia. No unilateral weakness, blurry vision or slurred speech. Patient does not have a history of migraines. No abdominal pain No chest pain, shortness of breath Related Data Home Medications ?Medication ?Instructions ?Recorded ?Confirmed prenat.vits,jhon,[id number] 1 tab PO DAILY 02/14/21 Previous Rx's ?Medication ?Instructions ?Recorded valacyclovir 1 gram tablet 1,000 mg PO DAILY #60 tabs 02/14/21 permethrin 5 % topical cream 1 appl topical Q14D scabies 2 07/10/21 doses #60 grams vits no.124-ferrous fum 1 tab PO DAILY #30 tabs 10/29/21 27 mg iron-folic acid 800 mcg tablet ( Vitamin) Allergies Allergy/AdvReac Type Severity Reaction Status Date / Time amoxicillin [AMOXICILLIN] Allergy Severe ANAPHYLAXIS Verified 03/11/24 13:32 Penicillins [PENICILLINS] Allergy Severe ANAPHYLAXIS Verified 03/11/24 13:32 Review of Systems Review of Systems: Yes all other systems are reviewed and are negative [facility] Past Medical History Medical History History of stillbirth Surgical History Hx of foot surgery Family History Family History Paternal Grandmother Hx of diabetes mellitus Mother No problems noted. Father No problems noted. Maternal Grandmother No problems noted. Maternal Grandfather No problems noted. Paternal Grandfather No problems noted. Social History Social History Household Members: Family Housing: Apartment Alcohol intake: never Patient Tobacco Use Status: Current everyday Tobacco user Substance Use Type: Marijuana Advance Directives: No Advance Directives Information Provided: Yes service: No Current occupational status: student Current occupational exposures/hazards: No Physical Exam ED Vital Signs: Vital Signs - 24 hr 03/11/24 13:30 03/11/24 16:00 Temperature 97.7 F 98.4 F Pulse Rate 82 83 Respiratory Rate 18 20 Blood Pressure 121/71 125/70 Pulse Oximetry 99 99 Oxygen Delivery Method Room Air Room Air BMI result Body Mass Index 20.1 General: Alert, Not in Distress Skin: No rash, warm HEENT: Atraumatic, No Exudate or Pharyngeal Erythema Resp: Normal Breath sounds bilaterally Cardio: Regular rate and Rhythm, Normal S1, S2 ABD: Abd soft, non tender, no guarding or rebound. Normal Bowel sounds. : No cva tenderness Neuro: Alert, oriented x4, PERRL Strenght 5/5 on all extremities Sensation is preserved in both lower and upper extremities Index to nose: normal Cranial Nerves II-XII grossly intact No dysarthria, or aphasia No neglet. Visual diamond are normal bilaterally Psych: Cooperative, NO SI Course Reevaluation(s) Reevaluation #1: Patient reports improvement of the headaches. Tolerated p.o. Reports that she feels good enough to go home. Return precautions discussed. Patient agrees with plan to be discharged. CBC and BMP were sent, showed mild hypokalemia which was repleted orally. Time: 18:06 Medications Administered Discontinued Medications Generic Name Dose Route Start Last Admin Trade Name Jurgenq PRN Reason Stop Dose Admin Acetaminophen 975 mg 03/11/24 16:30 03/11/24 17:31 Acetaminophen 325 Mg Tablet PO 03/11/24 16:31 975 mg ONCE ONE Administration Diphenhydramine HCl 25 mg 03/11/24 16:30 03/11/24 17:30 Diphenhydramine Hcl 50 Mg/Ml Vial IVPUSH 03/11/24 16:31 25 mg ONCE ONE Administration Metoclopramide HCl 10 mg 03/11/24 16:30 03/11/24 17:30 Metoclopramide Hcl 10 Mg/2 Ml Vial IVPUSH 03/11/24 16:31 10 mg ONCE ONE Administration Medical Decision Making Medical Decision Making MDM Narrative: Patient presented to the emergency room for headache and nausea and vomiting. 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 Plan Symptomatic treatment with Benadryl, Tylenol and Reglan Will perform bedside ultrasound to confirm intrauterine . Admission/Observation Consideration of admission/observation: Escalation of care including admission/observation considered Lab Data MDM Lab Attestation statement: I reviewed the patient's lab results. Unremarkable viral panel 03/11/24 17:26 03/11/24 17:26 Labs: Lab Results 03/11/24 03/11/24 Range/Units 13:44 17:26 WBC 17.1 H (4.8-10.8) X10*3/uL RBC 4.31 (4.20-5.50) X10*6/uL Hgb 13.2 (12.0-16.0) g/dl Hct 37.9 (37.0-47.0) % MCV 87.9 (80.0-98.0) fL MCH 30.6 (27.0-33.0) pg MCHC 34.8 (31.0-35.0) g/dl RDW 11.9 (11.0-16.0) % Plt Count 506 H (160-400) X10*3/uL MPV 8.7 L (9.4-12.3) fL Immature Gran % (Auto) 0.5 H (0.0-0.4) % Neut % (Auto) 76.6 H (45-73) % Lymph % (Auto) 17.1 L (20-40) % [place] % (Auto) 4.8 (2-11) % Eos % (Auto) 0.6 (0-4) % Baso % (Auto) 0.4 (0-2) % Lymph # (Auto) 2.9 (1.2-4.9) X10*3/uL [place] # (Auto) 0.8 (0.1-1.2) X10*3/uL Eos # (Auto) 0.1 (0.0-0.4) X10*3/uL Baso # (Auto) 0.1 (0.0-0.2) X10*3/uL Abs Immat Gran (auto) 0.09 H (0.00-0.03) X10*3/uL Absolute Neuts (auto) 13.1 H (2.0-8.3) x10*3/uL Absolute Nucleated RBC 0.000 (0.0-0.012) X10*3/uL Nucleated RBC % (auto) 0.0 (0.0-0.2) /100WBC Sodium 138 (135-145) mmol/L Potassium 3.1 L (3.3-5.1) mmol/L Chloride 105 (96-108) mmol/L Carbon Dioxide 22 (22-29) mmol/L Anion Gap 14 (12-20) BUN 9 (9-16) mg/dL Creatinine 0.61 (0.5-1.4) mg/dL Estim Creat Clear Calc 94.4 Estimated GFR > 60 Random Glucose 124 H (60-115) mg/dL Calcium 9.0 (8.4-10.2) mg/dL Total Bilirubin 0.3 (0.0-1.0) mg/dL AST 15 (5-31) U/L ALT 11 (0-31) U/L Alkaline Phosphatase 57 (39-117) U/L Total Protein 7.1 (6.5-8.0) g/dL Albumin 3.7 (3.5-5.0) g/dL Influenza Type A (PCR) NEGATIVE (Negative) Influenza Type B (PCR) NEGATIVE (Negative) RSV RNA Qual (PCR) NEGATIVE (Negative) SARS-CoV-2 RNA (RT-PCR) NEGATIVE (Negative) Independent Interpretation I performed an independent interpretation of an: Ultrasound (I personally performed and interpreted patient's bedside ultrasound that confirmed IUP) Discharge Plan Discharge Clinical Impression: , Headache, Hypokalemia Patient Disposition: Home, Self-Care Additional Instructions: You were seen in the emergency room for headache. Symptoms are likely related to the recent diagnosis of . At home take Tylenol 1000 mg every 6 hours, continuing her vitamin. Presented to the emergency room if your symptoms represent and are not controlled with Tylenol. Follow-up with your OBGYN as scheduled. Prescriptions: No Action permethrin 5 % cream 1 appl topical Q14D Qty: 60 2RF Rx Instructions: apply second treatment 14 days after first treatment if live lice remain Vitamin 27 mg iron- 800 mcg tablet 1 tab PO DAILY Qty: 30 0RF prenat.vits,jhon,ece-[id number] Tablet 1 tab PO DAILY valacyclovir 1 gram tablet 1,000 mg PO DAILY Qty: 60 0RF Print Language: Mongolian
[2024-03-11] MEDS: Metoclopramide HCl 10 MG/2 ML VIAL IVPUSH (17:30)
[2024-03-11] MEDS: diphenhydrAMINE HCL 50 MG/ML VIAL 25 MG IVPUSH (17:30)
[2024-03-11 17:31] LABS: MANUAL DIFF FLAG NO
[2024-03-11] MEDS: Acetaminophen 325 MG TABLET 975 MG PO (17:31)
[2024-03-11 17:39] LABS: Basophils Absolute Auto 0.1 X10*3/uL (0.0-0.2); Basophils Percent Auto 0.4 % (0-2); Eosinophils Absolute Auto 0.1 X10*3/uL (0.0-0.4); Eosinophils Percent Auto 0.6 % (0-4); Hematocrit 37.9 % (37.0-47.0); Hemoglobin 13.2 g/dl (12.0-16.0); Imm Gran Abs Auto 0.09 X10*3/uL (0.00-0.03); Imm Gran Pct Auto 0.5 % (0.0-0.4); Lymphocytes Absolute Auto 2.9 X10*3/uL (1.2-4.9); Lymphocytes Percent Auto 17.1 % (20-40); Mean Corpuscular HGB Conc 34.8 g/dl (31.0-35.0); Mean Corpuscular Hemoglobin 30.6 pg (27.0-33.0); Mean Corpuscular Volume 87.9 fL (80.0-98.0); Mean Platelet Volume 8.7 fL (9.4-12.3); Monocytes Absolute Auto 0.8 X10*3/uL (0.1-1.2); Monocytes Percent Auto 4.8 % (2-11); Neutrophils Absolute Auto 13.1 x10*3/uL (2.0-8.3); Neutrophils Percent Auto 76.6 % (45-73); Platelet Count 506 X10*3/uL (160-400); Red Blood Count 4.31 X10*6/uL (4.20-5.50); Red Cell Distribution Width 11.9 % (11.0-16.0); White Blood Count 17.1 X10*3/uL (4.8-10.8)
[2024-03-11 17:58] LABS: Alanine Aminotransferase 11 U/L (0-31); Albumin Level 3.7 g/dL (3.5-5.0); Alkaline Phosphatase 57 U/L (39-117); Anion Gap 14 (12-20); Aspartate Amino Transferase 15 U/L (5-31); Bilirubin Total 0.3 mg/dL (0.0-1.0); Blood Urea Nitrogen 9 mg/dL (9-16); Carbon Dioxide 22 mmol/L (22-29); Chloride 105 mmol/L (96-108); Creatinine Clr Calc Pharmacy 94.4; Estimated Glomerular Filt Rate > 60; Glucose Random 124 mg/dL (60-115); Potassium 3.1 mmol/L (3.3-5.1); Sodium 138 mmol/L (135-145); Total Protein 7.1 g/dL (6.5-8.0)
[2024-03-11] MEDS: Potassium Chloride ER 20 MEQ TAB.ER.PRT PO (18:10)
[2024-03-11 18:42] VITALS: BP 101/44; PULSE 66; RESP 16; TEMP 36.7; O2SAT 98
[2024-03-11 18:43] VITALS: BP 101/44; PULSE 66; RESP 16; TEMP 36.7; O2SAT 98
== END 2024-03-11 18:44 | disposition home or self-care (01) ==
PROVIDERS: Registered Nurse Emergency; Emergency Provider Student in an Organized Health Care Education/Training Program
DX: G43.909 Migraine, unspecified, not intractable, without status migrainosus (principal); E87.6 Hypokalemia; Z79.899 Other long term (current) drug therapy; Z11.52 Encounter for screening for COVID-19; Z20.822 Contact with and (suspected) exposure to COVID-19
CPT/HCPCS: 0241U; 36415; 80053; 85025; 96374; 96375; 99284; J1200; J2765

== ENCOUNTER 2025-02-16 12:30 | Emergency (ER) | payer MEDICAID, SELFPAY ==
[2025-02-16] VITALS (8 sets, daily range): BP systolic 91–118; BP diastolic 51–72; PULSE 54–84; RESP 18–22; TEMP 36.6–36.7; O2SAT 99–100; BMI 20.2
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
--- NOTE | 2025-02-16 12:48 | ECG_ITS ---
Test Reason : SYNCOPE Blood Pressure : */* mmHG Vent. Rate : 81 BPM Atrial Rate : 81 BPM P-R Int : 160 ms QRS Dur : 74 ms QT Int : 382 ms P-R-T Axes : 52 72 42 degrees QTcB Int : 443 ms Normal sinus rhythm Possible Left atrial enlargement Cannot rule out Anterior infarct , age undetermined Abnormal ECG When compared with ECG of 29-Oct-2021 09:27, No significant change was found Referred By: Laxmi Bustamante Electronically Signed By: CIERRA IZAGUIRRE MD
--- NOTE | 2025-02-16 12:54 | ED.SYNCOPE ---
HPI - Syncope General Chief Complaint: Syncope Stated Complaint: FAINTED,HIT FACE,UNK DOWNTIME,VOMITED PER EMS Time Seen by Provider: 02/16/25 12:48 Source: patient, EMS and old records reviewed Mode of arrival: EMS Limitations: no limitations History of Present Illness ED Provider: PARAS HPI narrative: 30 year old female without significant medical history presents to the ED by ambulance due to syncopal episode. Patient states she was celebrating her birthday and reports taking one shot while getting her hair done when she passed out and hit the right side of her forehead on the corner of a dresser. She states she is not worried, and does not suspect that any of her friends would have spiked her drink. Her friends told her she began to seize after passing out. She did not have a post ictal phase. She states she has been feeling funny , having many episodes of feeling like she is about to pass out and losing her hair. She explains this is chronic but she hasnt had a cardiac work up or tilt table test to assess these symptoms. She denies nausea, vomiting, visual changes, photophobia, chest pain, SOB. MD complaint: other (syncopal episode) Onset (ago): hour(s) Prodromal symptoms: lightheaded Witnessed: Yes - by Other (friends, state patient siezed after syncopal episode) Injuries sustained associated with event: face (right forehead) Current symptoms: lightheaded Treatments prior to arrival: none Related Data Home Medications ?Medication ?Instructions ?Recorded ?Confirmed prenat.vits,jhon,[id number] 1 tab PO DAILY 02/14/21 Previous Rx's ?Medication ?Instructions ?Recorded valacyclovir 1 gram tablet 1,000 mg PO DAILY #60 tabs 02/14/21 permethrin 5 % topical cream 1 appl topical Q14D scabies 2 07/10/21 doses #60 grams vits no.124-ferrous fum 1 tab PO DAILY #30 tabs 10/29/21 27 mg iron-folic acid 800 mcg tablet ( Vitamin) Allergies Allergy/AdvReac Type Severity Reaction Status Date / Time amoxicillin [AMOXICILLIN] Allergy Severe ANAPHYLAXIS Verified 02/16/25 12:44 Penicillins [PENICILLINS] Allergy Severe ANAPHYLAXIS Verified 02/16/25 12:44 Review of Systems Review of Systems: Constitutional : No Fever, No Chills, No Fatigue ENT/Mouth : No sore throat, No Rhinorrhea Eyes: No Eye Pain, No Swelling, No Redness Cardiovascular : No Chest Pain, No SOB, No Dyspnea on Exertion Respiratory : No Cough, No Sputum Gastrointestinal : No Nausea, No Vomiting, No Diarrhea, No abdominal Pain Genitourinary : No Dysuria, No Urinary Frequency, No Hematuria, Musculoskeletal : No joint pain, No Myalgias, No Joint Swelling Skin : No Skin Lesions, No rash Neuro : No Weakness, No Numbness, pos Dizziness, No Headache, pos lightheadedness Psych : No Anxiety/Panic, No Depression Heme/Lymph: No Bruising, No Bleeding,No Lymphadenopathy Endocrine : No Polyuria, No Polydipsia, pos hair loss All other systems reviewed and are negative Yes all other systems are reviewed and are negative [facility] Past Medical History Attestation statement: The following information was validated with the patient. Source: old records reviewed Medical History History of stillbirth Surgical History Hx of foot surgery Family History Family History Paternal Grandmother Hx of diabetes mellitus Mother No problems noted. Father No problems noted. Maternal Grandmother No problems noted. Maternal Grandfather No problems noted. Paternal Grandfather No problems noted. Social History Social History Household Members: Family Housing: Apartment Alcohol intake: never Patient Tobacco Use Status: Current everyday Tobacco user Smoked in Last 30 Days: No Substance Use Type: Marijuana Advance Directives: No Advance Directives Information Provided: No Do you have a plan to hurt others: No Plan service: No Current occupational status: student Current occupational exposures/hazards: No Physical Exam Vital Signs: Vital Signs: Last Vital Signs Temp 98.0 F 02/16/25 14:30 Pulse 78 02/16/25 15:43 Resp 22 H 02/16/25 14:30 BP 92/64 02/16/25 15:43 Pulse Ox 100 02/16/25 14:39 O2 Del Method Room Air 02/16/25 14:39 BMI result Body Mass Index 20.2 Appearance: Alert. Oriented X3. No acute distress. Eyes: Pupils equal, round and reactive to light. ENT: Pharynx normal. Neck: Normal inspection. Neck supple. CVS: Normal heart rate and rhythm. Pulses normal. Respiratory: No respiratory distress. Breath sounds normal. Abdomen: Soft and nontender. Skin: Skin warm and dry. Normal skin color. Normal skin turgor. Slight temporal hair loss bilaterally, grape sized hematoma on right forehead Extremities: No lower extremity edema. No calf ttp Neuro: Oriented X 3. No motor deficit. No sensory deficit. CN2-12 intact Medications Administered Discontinued Medications Generic Name Dose Route Start Last Admin Trade Name Jurgenq PRN Reason Stop Dose Admin Lactated Ringer's 1,000 mls @ 999 mls/hr 02/16/25 12:48 02/16/25 14:24 Lr IV 02/16/25 13:48 Infused .Q1H1M ONE Infusion Medical Decision Making Medical Decision Making MDM Narrative: 30 year old female without significant medical history presents to the ED by ambulance due to syncopal episode. Patient states she was celebrating her birthday and reports taking one shot while getting her hair done when she passed out and hit the right side of her forehead on the corner of a dresser. She states she is not worried, and does not suspect that any of her friends would have spiked her drink. Her friends told her she began to seize after passing out. She did not have a post ictal phase. She states she has been feeling funny , having many episodes of feeling like she is about to pass out and losing her hair. She explains this is chronic but she hasnt had a cardiac work up or tilt table test to assess these symptoms. She denies any family history of sudden cardiac . She denies nausea, vomiting, visual changes, photophobia, chest pain, SOB. Patients vital signs are stable. She is in no acute distress and is non-toxic appearing. Patient lab work is unremarkable with no evidence of anemia. Will add on TSH to observe for hypothyroidism. EKG shows no ST elevations/depressions but does reveal juvenile T waves. Troponin within normal limits, no suspicious for ACS event. Will obtain serum HCG. Will obtain orthostatics to observe for orthostatic hypotension causing syncopal episode Differential Diagnosis Differential Diagnoses: The differential diagnosis associated with the presentation includes vasovagal syncope, ACS, lyte abnormality, hypothyroidism, alcohol intoxication, orthostatic hypotension Admission/Observation Consideration of admission/observation: Escalation of care including admission/observation considered feels much better at this time stable for DC ortho negative GCS 15 stable for DC Lab Data [facility] Lab Attestation statement: I reviewed the patient's lab results. 02/16/25 12:59 02/16/25 12:59 Labs: Lab Results 02/16/25 Range/Units 12:59 WBC 9.9 (4.8-10.8) X10*3/uL RBC 4.76 (4.20-5.50) X10*6/uL Hgb 13.8 (12.0-16.0) g/dl Hct 42.6 (37.0-47.0) % MCV 89.5 (80.0-98.0) fL MCH 29.0 (27.0-33.0) pg MCHC 32.4 (31.0-35.0) g/dl RDW 12.8 (11.0-16.0) % Plt Count 577 H (160-400) X10*3/uL MPV 9.3 L (9.4-12.3) fL Immature Gran % (Auto) 0.3 (0.0-0.4) % Neut % (Auto) 70.3 (45-73) % Lymph % (Auto) 23.1 (20-40) % [place] % (Auto) 4.6 (2-11) % Eos % (Auto) 0.9 (0-4) % Baso % (Auto) 0.8 (0-2) % Lymph # (Auto) 2.3 (1.2-4.9) X10*3/uL [place] # (Auto) 0.5 (0.1-1.2) X10*3/uL Eos # (Auto) 0.1 (0.0-0.4) X10*3/uL Baso # (Auto) 0.1 (0.0-0.2) X10*3/uL Abs Immat Gran (auto) 0.03 (0.00-0.03) X10*3/uL Absolute Neuts (auto) 7.0 (2.0-8.3) x10*3/uL Absolute Nucleated RBC 0.000 (0.0-0.012) X10*3/uL Nucleated RBC % (auto) 0.0 (0.0-0.2) /100WBC Sodium 140 (135-145) mmol/L Potassium 3.8 D (3.3-5.1) mmol/L Chloride 110 H (96-108) mmol/L Carbon Dioxide 18 L (22-29) mmol/L Anion Gap 16 (12-20) BUN 10 (9-16) mg/dL Creatinine 0.70 (0.5-1.4) mg/dL Estim Creat Clear Calc 81.6 Estimated GFR > 60 Random Glucose 81 (60-115) mg/dL Calcium 9.0 (8.4-10.2) mg/dL Magnesium 1.8 (1.6-2.6) mg/dL Total Bilirubin 0.3 (0.0-1.0) mg/dL Direct Bilirubin 0.1 (0.0-0.5) mg/dL AST 41 H (5-31) U/L ALT 26 (0-31) U/L Alkaline Phosphatase 79 (39-117) U/L Troponin I High Sens < 2.7 (<3.5-17.0) ng/L Total Protein 7.9 (6.5-8.0) g/dL Albumin 4.2 (3.5-5.0) g/dL Lipase 16 (8-78) U/L Beta HCG, Quant < 2 mIU/mL Ethyl Alcohol 12 mg/dL Independent Interpretation I performed an independent interpretation of an: EKG and CT Scan (no trauma) Interpretation: Rate: 81 Rhythm: NSR Bath: normal Normal P waves. Normal SHAILA. Normal QRS complex. ST T wave : incomplete RBBB, no gilberto, inverted ant t waves V1-V3 mild - old qTC: 443 prior studies: no change from prior The study has been interpreted contemporaneously by me. . Radiology Impression Discussion of test interpretation with radiology: I have reviewed the radiologist's reading. Independent Historian Clinical information obtained from an independent historian. History obtained from or confirmed by: EMS External Record Review External record reviewed: Outpatient record Discharge Plan Discharge Clinical Impression: Vasovagal syncope Patient Disposition: Home, Self-Care Instructions: Syncope (ED) Additional Instructions: return for worsening symptoms or dizziness drink about 50 ounces of water a day increase your salt intake - enjoy some salty foods and put a little bit of salt on your meals rest and stay hydrated the next two days we did send off your thyroid test if abnormal we will call you happy birthday call your doctor for referral of possible blood pressure dropping you may need a tilt table test CT head normal Prescriptions: No Action permethrin 5 % cream 1 appl topical Q14D Qty: 60 2RF Rx Instructions: apply second treatment 14 days after first treatment if live lice remain Vitamin 27 mg iron- 800 mcg tablet 1 tab PO DAILY Qty: 30 0RF prenat.vits,jhon,[id number] Tablet 1 tab PO DAILY valacyclovir 1 gram tablet 1,000 mg PO DAILY Qty: 60 0RF Stand Alone Forms: Work/School Release Print Language: Thai
[2025-02-16] MEDS: Lactated Ringers 1,000 ML 999 ML IV (13:01)
--- NOTE | 2025-02-16 13:03 | MHC.EDTECH ---
EKG was taken , Patient is resting quietly in her bed within call fuentes in her reach.
[2025-02-16 13:11] LABS: MANUAL DIFF FLAG NO
[2025-02-16 13:13] LABS: Hematocrit 42.6 % (37.0-47.0); Hemoglobin 13.8 g/dl (12.0-16.0); Mean Corpuscular HGB Conc 32.4 g/dl (31.0-35.0); Mean Corpuscular Volume 89.5 fL (80.0-98.0); Mean Platelet Volume 9.3 fL (9.4-12.3); Neutrophils Percent Auto 70.3 % (45-73); Platelet Count 577 X10*3/uL (160-400); Red Blood Count 4.76 X10*6/uL (4.20-5.50); Red Cell Distribution Width 12.8 % (11.0-16.0); White Blood Count 9.9 X10*3/uL (4.8-10.8)
[2025-02-16 13:14] LABS: Basophils Absolute Auto 0.1 X10*3/uL (0.0-0.2); Basophils Percent Auto 0.8 % (0-2); Eosinophils Absolute Auto 0.1 X10*3/uL (0.0-0.4); Eosinophils Percent Auto 0.9 % (0-4); Imm Gran Abs Auto 0.03 X10*3/uL (0.00-0.03); Imm Gran Pct Auto 0.3 % (0.0-0.4); Lymphocytes Absolute Auto 2.3 X10*3/uL (1.2-4.9); Lymphocytes Percent Auto 23.1 % (20-40); Monocytes Absolute Auto 0.5 X10*3/uL (0.1-1.2); Monocytes Percent Auto 4.6 % (2-11)
[2025-02-16 13:40] LABS: Troponin-I High Sensitivity < 2.7 ng/L (<3.5-17.0)
[2025-02-16 14:15] LABS: HCG Quantitative < 2 mIU/mL
[2025-02-16 14:23] LABS: Alanine Aminotransferase 26 U/L (0-31); Albumin Level 4.2 g/dL (3.5-5.0); Anion Gap 16 (12-20); Aspartate Amino Transferase 41 U/L (5-31); Bilirubin Direct 0.1 mg/dL (0.0-0.5); Bilirubin Total 0.3 mg/dL (0.0-1.0); Blood Urea Nitrogen 10 mg/dL (9-16); Carbon Dioxide 18 mmol/L (22-29); Chloride 110 mmol/L (96-108); Creatinine Clr Calc Pharmacy 81.6; Estimated Glomerular Filt Rate > 60; Ethanol 12 mg/dL; Glucose Random 81 mg/dL (60-115); Lipase 16 U/L (8-78); Magnesium 1.8 mg/dL (1.6-2.6); Potassium 3.8 mmol/L (3.3-5.1); Sodium 140 mmol/L (135-145); Total Protein 7.9 g/dL (6.5-8.0)
--- NOTE | 2025-02-16 14:24 | PC.NURSE ---
Pt up ambulating to the bathroom with steady gait. Denies dizziness/nausea/cp during ambulation/changing positions.
[2025-02-16 14:35] LABS: Alkaline Phosphatase 79 U/L (39-117)
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
--- OUTSIDE RECORDS SUMMARY | 2025-02-16 16:24 | XMS_ITS ---
Author Name [facility] Organization Unknown Care Team Organization Name Specialty Phone Email Start Date End [facility] 2023 [facility] 07/30/2023
[2025-02-16 16:32] LABS: TSH reflex Free T4 1.61 uIU/mL (0.32-4.0)
== END 2025-02-16 16:45 | disposition home or self-care (01) ==
PROVIDERS: Emergency Provider Emergency Medicine; PCP Internal Medicine
DX: R55 Syncope and collapse (principal); F17.200 Nicotine dependence, unspecified, uncomplicated; Z79.899 Other long term (current) drug therapy
CPT/HCPCS: 36415; 70450; 80048; 80076; 80307; 83690; 83735; 84443; 84484; 84702; 85025; 93005; 96360; 99284; 99285; J7120

== ENCOUNTER → 2025-02-16 12:48 | Outpatient (BNV) | payer MEDICAID, SELFPAY | PROVIDERS: Emergency Provider Emergency Medicine; PCP Internal Medicine; Visit Provider Internal Medicine Cardiovascular Disease | DX: R94.31 Abnormal electrocardiogram [ECG] [EKG] (principal); R55 Syncope and collapse | CPT/HCPCS: 93010 ==

== ENCOUNTER → 2025-02-16 13:43 | Outpatient (BNV) | payer MEDICAID, SELFPAY | PROVIDERS: Emergency Provider Emergency Medicine; PCP Internal Medicine; Visit Provider Radiology Diagnostic Radiology | DX: S09.90XA Unspecified injury of head, initial encounter (principal); W19.XXXA Unspecified fall, initial encounter | CPT/HCPCS: 70450 ==